=== PATIENT | female | born 1975 ===

== ENCOUNTER → 2025-02-14 13:31 | Outpatient (REF) | payer OTHER, SELFPAY ==
[2025-02-21 02:46] LABS: HPV, High Risk Not Detected; HPV, High Risk Source Anal
== END ==
LOC: CLAB 13:31
PROVIDERS: ATTENDING PHYSICIAN Physician Assistant
DX: Z72.51 High risk heterosexual behavior (principal)
CPT/HCPCS: 87624; 88112